=== PATIENT | male | born 1960 | race Caucasian/White ===

== ENCOUNTER 2017-10-14 17:58 | Emergency (ER) | payer OTHER ==
--- NOTE | 2017-10-14 18:01 | PDOC ---
Rapid Medical Evaluation Time Seen by Provider: 10/14/17 17:59 Medical Evaluation: Allergies Allergy/AdvReac Type Severity Reaction Status Date / Time No Known Drug Allergies Allergy Verified 06/13/15 07:59 10/14/17 17:59 I have performed a brief in-person evaluation of this patient. The patient presents with a chief complaint of: FB sensation to R ear Pertinent physical exam findings: NAD I have ordered the following: nothing The patient will proceed to the ED for further evaluation. Discharge Disposition - Diagnosis Ear anomaly - Referrals - Patient Instructions - Post Discharge Activity
[2017-10-14 18:04] VITALS: BP 135/75; PULSE 87; TEMP 97.6; BMI 27.3
--- NOTE | 2017-10-14 18:11 | PDOC ---
History of Present Illness - General Stated Complaint: EAR PAIN Time Seen by Provider: 10/14/17 17:59 History Source: Patient Exam Limitations: No Limitations - History of Present Illness Initial Comments: 10/14/17 18:04 This is a 56yo man without PMH who presents with foreign body sensation in his right ear. Pt states he felt something crawl into his ear overnight and it has been bothering him since. He denies fevers, chills, hearing loss, discharge. Past History - Past Medical History Allergies/Adverse Reactions: Allergies Allergy/AdvReac Type Severity Reaction Status Date / Time No Known Drug Allergies Allergy Verified 10/14/17 18:02 Home Medications: Ambulatory Orders Meloxicam 7.5 mg PO PRN PRN 06/12/15 COPD: No - Immunization History Immunization Up to Date: Yes - Suicide/Smoking/Psychosocial Hx Smoking History: Never smoked Have you smoked in the past 12 months: No Information on smoking cessation initiated: No Hx Alcohol Use: No Drug/Substance Use Hx: No Substance Use Type: None Hx Substance Use Treatment: No Review of Systems - Review of Systems Able to Perform ROS?: Yes Is the patient limited [place] proficient: No Constitutional: No: Symptoms Reported HEENTM: Yes: See HPI Respiratory: No: Symptoms reported Cardiac (ROS): No: Symptoms Reported ABD/GI: No: Symptoms Reported : No: Symptoms Reported Musculoskeletal: No: Symptoms Reported Integumentary: No: Symptoms Reported Neurological: No: Symptoms reported Endocrine: No: Symptoms Reported Hematologic/Lymphatic: No: Symptoms Reported *Physical Exam - Vital Signs Last Vital Signs Temp Pulse Resp BP Pulse Ox 97.6 F 87 18 135/75 100 10/14/17 18:02 10/14/17 18:02 10/14/17 18:02 10/14/17 18:02 10/14/17 18:02 - Physical Exam General Appearance: Yes: Appropriately Dressed. No: Apparent Distress HEENT: positive: Normal ENT Inspection, Pharynx Normal Neck: positive: Trachea midline, Supple Respiratory/Chest: positive: Lungs Clear, Normal Breath Sounds. negative: Respiratory Distress, Accessory Muscle Use Cardiovascular: positive: Regular Rhythm, Regular Rate. negative: Murmur Medical Decision Making - Medical Decision Making 10/14/17 18:12 A/P: 56yo man with foreign body sensation to Right ear after insect crawled in TM clear without erythema or exudate bilaterally External auditory canals clear. No abrasions present to external auditory canal Discharge *DC/Admit/Observation/Transfer Diagnosis at time of Disposition: Physically well but worried - Discharge Dispostion Disposition: HOME Condition at time of disposition: Stable Decision to Admit order: No - Referrals - Patient Instructions Additional Instructions: Return to ED for any concerns. - Post Discharge Activity
== END 2017-10-14 18:30 | disposition home or self-care (01) ==
LOC: JERFT 17:58 → JER 17:58 → JERFT 18:30
DX: T16.1XXA Foreign body in right ear, initial encounter (principal); X58.XXXA Exposure to other specified factors, initial encounter; Y93.89 Activity, other specified; Y92.038 Other place in apartment as the place of occurrence of the external cause; Y99.8 Other external cause status
CPT/HCPCS: 99281-25

== ENCOUNTER 2018-12-05 20:45 | Emergency (ER) | payer OTHER ==
[2018-12-05 20:51] VITALS: BP 136/88; PULSE 70; TEMP 97.6; BMI 27.4
--- NOTE | 2018-12-05 21:46 | PDOC ---
History of Present Illness - General Chief Complaint: Sore Throat Stated Complaint: THROAT PAIN Time Seen by Provider: 12/05/18 21:34 - History of Present Illness Initial Comments: 12/05/18 21:35 CHIEF COMPLAINT: burning sensation HISTORY OF PRESENT ILLNESS: 58 yo M with no significant PMH presents to fast track with burning sensation to R chest and throat. No recent travel or sick contacts. PAST MEDICAL HISTORY: Denies past medical history FAMILY HISTORY: Denies SOCIAL HISTORY: Denies tobacco, alcohol, illicit drug use. SURGICAL HISTORY: Denies ALLERGIES: No known drug allergies REVIEW OF SYSTEMS General/Constitutional: Denies fever or chills. Denies weakness, weight change. HEENT: Denies change in vision. Denies ear pain or discharge. Denies sore throat. Cardiovascular: Denies chest pain or shortness of breath. Respiratory: Denies cough, wheezing, or hemoptysis. Gastrointestinal: "Burning sensation to R side of throat from chest." Denies nausea, vomiting, diarrhea or constipation. Denies rectal bleeding. Genitourinary: Denies dysuria, frequency, or change in urination. Musculoskeletal: Denies joint or muscle swelling or pain. Denies neck or back pain. Skin: Denies rash or easy bruising. Neurologic: Denies headache, vertigo, loss of consciousness, or loss of sensation. PHYSICAL EXAM General Appearance: Well-appearing, appropriately dressed. No apparent distress. HEENT: EOMI, PERRLA, normal ENT inspection, normal voice, TMs normal, pharynx normal. No conjunctival pallor. No photophobia, scleral icterus. Neck: Supple. Trachea midline. No tenderness, rigidity, carotid bruit, stridor , lymphadenopathy, or thyromegaly. Respiratory/Chest: Lungs CTAB. No shortness of breath, chest tenderness, respiratory distress, accessory muscle use. No crackles, rales, rhonchi, stridor , wheezing, dullness Cardiovascular: RRR. S1, S2. Gastrointestinal/Abdominal: Normal bowel sounds. Abdomen soft, non-distended. No tenderness or rebound tenderness. No organomegaly, pulsatile mass, guarding , hernia, hepatomegaly, splenomegaly. Musculoskeletal/Extremities: Normal inspection. FROM of all extremities, normal capillary refill. Pelvis Stable. No CVA tenderness. No tenderness to extremities, pedal edema, swelling, erythema or deformity. Integumentary: Appropriate color, dry, warm. No cyanosis, erythema, jaundice or rash Neurologic: package wrapper II-XII intact. Fully oriented, alert. Appropriate mood/affect. Motor strength 5/5. No appreciable EOM palsy, facial droop or sensory deficit. Past History - Past Medical History Allergies/Adverse Reactions: Allergies Allergy/AdvReac Type Severity Reaction Status Date / Time No Known Drug Allergies Allergy Verified 12/05/18 20:51 Home Medications: Ambulatory Orders Diclofenac Sodium [Voltaren -] 75 mg PO BID #14 tablet. 12/05/18 COPD: No - Immunization History Immunization Up to Date: Yes - Suicide/Smoking/Psychosocial Hx Smoking History: Unknown if ever smoked Have you smoked in the past 12 months: No Information on smoking cessation initiated: No Hx Alcohol Use: No Drug/Substance Use Hx: No Substance Use Type: None Hx Substance Use Treatment: No *Physical Exam - Vital Signs Last Vital Signs Temp Pulse Resp BP Pulse Ox 97.6 F 70 16 136/88 100 12/05/18 20:49 12/05/18 20:49 12/05/18 20:49 12/05/18 20:49 12/05/18 20:49 Medical Decision Making - Medical Decision Making 12/05/18 21:46 58 yo M with no significant PMH presents to fast track with burning sensation to R chest and throat. Patient states that he knows this is not acid reflux and does not want any antacid, stating he needs pain relief. NSAIDS, f/u with GI. *DC/Admit/Observation/Transfer Diagnosis at time of Disposition: Burning sensation of throat - Discharge Dispostion Disposition: HOME Condition at time of disposition: Stable Decision to Admit order: No - Prescriptions Prescriptions: Diclofenac Sodium [Voltaren -] 75 mg PO BID #14 tablet. - Referrals Referrals: Roni Calderón [Primary Care Provider] - Frida August MD [Staff Physician] - - Patient Instructions Additional Instructions: Please take medications as prescribed. Follow up with your primary care and GI doctors as discussed. If you develop any new or worsening symptoms, please return to the ER. - Post Discharge Activity
== END 2018-12-05 22:02 | disposition home or self-care (01) ==
LOC: JERFT 20:45
DX: R07.0 Pain in throat (principal)
CPT/HCPCS: 71046-TC-FY; 99281-25

== ENCOUNTER 2020-06-30 09:15 | Emergency (ER) | payer OTHER ==
[2020-06-30 09:51] VITALS: BP 131/81; PULSE 77; TEMP 98.4; BMI 27.0
[2020-06-30] MEDS ORDERED: IBUPROFEN 600 MG TABLET (FP) PO ONE ×2 (10:26→10:33)
== END 2020-06-30 12:09 | disposition home or self-care (01) ==
LOC: JER 09:15
DX: U07.1 COVID-19 (principal)
CPT/HCPCS: 71046-TC-FY; 99283-25

== ENCOUNTER 2020-07-03 23:53 | Emergency (ER) | payer OTHER ==
[2020-07-04 00:03] VITALS: BP 152/102; PULSE 98; TEMP 98.6; BMI 27.8
[2020-07-04 03:21] LABS: BASO % 2.1 % (0-2.0); EOS % 1.9 % (0-4.5); HEMATOCRIT 38.6 % (35.4-49); HEMOGLOBIN 13.2 GM/dL (11.7-16.9); LYMPH % 22.4 % (8-40); MCH 31.7 pg (25.7-33.7); MCHC 34.1 g/dl (32.0-35.9); MEAN CELL VOLUME 92.8 fl (80-96); MEAN PLT VOLUME 9.2 fl (7.5-11.1); MONO % 12.1 % (3.8-10.2); NEUT % 61.5 % (42.8-82.8); PLATELET COUNT 273 K/MM3 (134-434); RBC 4.16 M/mm3 (4.00-5.60); RDW 13.5 % (11.9-15.9)
[2020-07-04 03:35] LABS: INR 1.15 (0.83-1.09); PROTHROMBIN TIME (PATIENT) 14.1 SEC (9.7-13.0)
[2020-07-04 03:37] LABS: ACTIVATED PTT 32.5 SECONDS (25.2-36.5)
== END 2020-07-04 05:09 | disposition home or self-care (01) ==
LOC: JER 23:53
DX: R04.0 Epistaxis (principal)
CPT/HCPCS: 36415; 85025; 85610; 85730; 99283-25

== ENCOUNTER 2020-09-11 14:47 | Emergency (ER) | payer OTHER ==
[2020-09-11] MEDS ORDERED: IBUPROFEN 600 MG TABLET (FP) PO ONE ×2 (15:24→15:32)
[2020-09-11 15:33] VITALS: BP 129/78; PULSE 76; TEMP 98.2; BMI 27.3
[2020-09-11 16:08] LABS: BASO % 0.6 % (0-2.0); EOS % 6.3 % (0-4.5); HEMATOCRIT 39.1 % (35.4-49); HEMOGLOBIN 13.7 GM/dL (11.7-16.9); LYMPH % 46.8 % (8-40); MCH 32.4 pg (25.7-33.7); MCHC 34.9 g/dl (32.0-35.9); MEAN CELL VOLUME 92.7 fl (80-96); MEAN PLT VOLUME 9.6 fl (7.5-11.1); MONO % 11.5 % (3.8-10.2); NEUT % 34.8 % (42.8-82.8); PLATELET COUNT 184 K/MM3 (134-434); RBC 4.22 M/mm3 (4.00-5.60); RDW 14.5 % (11.9-15.9); WHITE BLOOD COUNT 6.4 K/mm3 (4.0-10.0)
[2020-09-11 16:44] LABS: CHLORIDE 105 mmol/L (98-107); SODIUM 139 mmol/L (136-145)
[2020-09-11 16:46] LABS: CALCIUM 8.8 mg/dL (8.5-10.1)
[2020-09-11 16:47] LABS: ANION GAP 4 MMOL/L (8-16); BLOOD UREA NITROGEN 14.8 mg/dL (7-18); CO2 30 mmol/L (21-32); GLUCOSE,RANDOM 132 mg/dL (74-106); MAGNESIUM 1.9 mg/dL (1.8-2.4)
[2020-09-11 16:49] LABS: SGOT/AST 20 U/L (15-37); SGPT/ALT 32 U/L (13-61)
[2020-09-11 16:50] LABS: CREATININE 1.2 mg/dL (0.55-1.3)
[2020-09-11 16:51] LABS: BILIRUBIN,TOTAL 0.3 mg/dL (0.2-1); TOT PROT 7.1 g/dl (6.4-8.2)
[2020-09-11 16:52] LABS: ALK PHOS 103 U/L (45-117)
== END 2020-09-11 18:15 | disposition home or self-care (01) ==
LOC: JER 14:47
DX: R07.9 Chest pain, unspecified (principal); Z23 Encounter for immunization
CPT/HCPCS: 36415; 71045-TC-FY; 80053; 82550; 83735; 84484; 85025; 93005; 93010; 99284-25

== ENCOUNTER 2021-03-25 14:43 | Emergency (ER) | payer OTHER ==
[2021-03-25 14:49] VITALS: BP 167/85; PULSE 87; TEMP 98.7; BMI 27.3
== END 2021-03-25 15:15 | disposition home or self-care (01) ==
LOC: JERFT 14:43
DX: S76.312A Strain of muscle, fascia and tendon of the posterior muscle group at thigh level, left thigh, initial encounter (principal); W18.42XA Slipping, tripping and stumbling without falling due to stepping into hole or opening, initial encounter; X50.0XXA Overexertion from strenuous movement or load, initial encounter
CPT/HCPCS: 99281-25

== ENCOUNTER 2021-03-27 15:33 | Emergency (ER) | payer OTHER ==
[2021-03-27 15:54] VITALS: BP 122/71; PULSE 88; TEMP 98.4; BMI 26.6
== END 2021-03-27 17:15 | disposition home or self-care (01) ==
LOC: JER 15:33
DX: R50.9 Fever, unspecified (principal); Z11.52 Encounter for screening for COVID-19
CPT/HCPCS: 87804; 99283-25; C9803; U0003; U0005

== ENCOUNTER 2023-07-20 14:42 | Emergency (ER) | payer OTHER ==
[2023-07-20 15:02] VITALS: BP 140/70; PULSE 84; RESP 18; TEMP 98.4; BMI 26.6
== END 2023-07-20 16:46 | disposition home or self-care (01) ==
LOC: JERFT 14:42
DX: T54.91XA Toxic effect of unspecified corrosive substance, accidental (unintentional), initial encounter (principal)
CPT/HCPCS: 99283-25

== ENCOUNTER 2023-08-11 16:19 | Emergency (ER) | payer OTHER ==
[2023-08-11 16:28] VITALS: BP 130/81; PULSE 85; RESP 18; TEMP 97.8; BMI 26.6
[2023-08-11 18:34] LABS: PH,URINE 6.5 (5.0-8.0); URINE APPEARANCE CLEAR; URINE BILIRUBIN NEGATIVE (NEGATIVE); URINE COLOR YELLOW; URINE GLUCOSE (UA) 3+ (NEGATIVE); URINE KETONE TRACE (NEGATIVE); URINE LEUK ESTERASE NEGATIVE (NEGATIVE); URINE NITRITE NEGATIVE (NEGATIVE); URINE PROTEIN NEGATIVE (NEGATIVE)
[2023-08-11] MEDS ORDERED: ACETAMINOPHEN 500 MG TABLET (FP) ONE (18:57)
[2023-08-11] MEDS ORDERED: LIDOCAINE 4% PATCH TP ONE (18:57)
[2023-08-11] MEDS ORDERED: KETOROLAC TROMETHAMINE 30 MG/1 ML VIAL ONE (18:57)
[2023-08-11] MEDS: KETOROLAC TROMETHAMINE 30 MG/1 ML VIAL IM ONE (19:03)
[2023-08-11] MEDS: ACETAMINOPHEN 325 MG TABLET (FP) PO ONE (19:04)
[2023-08-11] MEDS: LIDOCAINE 4% PATCH TP ONE (19:04)
== END 2023-08-11 20:38 | disposition home or self-care (01) ==
LOC: JERFT 16:19
PROC: 3E0333Z Introduction of Anti-inflammatory into Peripheral Vein, Percutaneous Approach (ICD-10-PCS; principal; 2023-08-11)
DX: M54.9 Dorsalgia, unspecified (principal); R39.198 Other difficulties with micturition
CPT/HCPCS: 81003; 87086; 99284-25

== ENCOUNTER 2024-05-15 10:13 | Emergency (ER) | payer MEDICARE, OTHER ==
[2024-05-15 10:20] VITALS: BP 134/87; PULSE 67; RESP 18; TEMP 98.4; BMI 28.2
[2024-05-15] MEDS ORDERED: REFRIGERATED ANITBIOTICS ONE (10:57)
== END 2024-05-15 11:17 | disposition home or self-care (01) ==
LOC: FER 10:13
DX: R21 Rash and other nonspecific skin eruption (principal)
CPT/HCPCS: 99283-25